=== PATIENT | male | born 1990 | race Caucasian/White ===

== ENCOUNTER 2020-09-22 14:54 | Emergency (ER) | payer MEDICAID ==
[~2020-09-22] VITALS: Ht 170.2 cm; Wt 77.1 kg
--- NOTE | 2020-09-22 15:04 | NUR ---
BIB [facility] 84 FOR SUICIDAL IDEATION. HE IS AWAKE AND ALERT. VITAL SIGNS STABLE. HE HAS NOT ATTEMPTED SUICIDE AND STATES HAS NO PLAN. STATES HE DRINKS ALCOHOL AND DRANK A COUPLE OF HOURS AGO. HE IS HOMELESS. HE IS WEARING CLEAN SHIRT AND SHORTS AND CLEAN SOCKS AND SHOES. I GAVE HIM A SANDWICH, JUICE AND WATER. STATES HE HAS BEEN HOMELESS FOR A YEAR. [facility] STATES HE CALLED EMS FOR SAME REASON YESTERDAY AND WAS DISCHARGED HOME. HE HAS A SMALL ANTONIO BAG THAT I LOOKED THROUGH.. THERE IS A PAIR OF SHORTS, SOCKS AND AN EMPTY CAN OF BEER WHICH I THREW AWAY. 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
--- NOTE | 2020-09-22 15:22 | NUR ---
[employer] WAS AT BEDSIDE. POLICE STATED "CALL CAME IN A POSSIBLE OVERDOSE". PATIENT DENIES TAKING ANY DRUGS. STATES HE DRANK ALCOHOL ONLY.
[2020-09-22 16:13] LABS: BASOPHILS # (AUTO) 0.1 K/uL (0.0-8.0); BASOPHILS % (AUTO) 0.8 % (0.0-2.0); EOSINOPHILS # (AUTO) 0.1 K/uL (0.0-0.7); EOSINOPHILS % (AUTO) 0.9 % (0.0-7.0); HEMOGLOBIN 14.9 g/dL (12.5-16.3); LYMPHOCYTES # (AUTO) 1.8 K/uL (20.0-40.0); LYMPHOCYTES % (AUTO) 23.7 % (20.5-51.5); MEAN CORPUSCULAR HEMOGLOBIN 30.4 uug (23.8-33.4); MEAN CORPUSCULAR HGB CONC 34 g/dL (32.5-36.3); MEAN CORPUSCULAR VOLUME 89.3 fL (73.0-96.2); MONOCYTES # (AUTO) 0.3 K/uL (2.0-10.0); MONOCYTES % (AUTO) 4.4 % (0.0-11.0); NEUTROPHILS # (AUTO) 5.3 K/uL (1.8-8.9); NEUTROPHILS % (AUTO) 70.2 % (38.5-71.5); PLATELET COUNT (AUTO) 342 K/uL (152-348); RED BLOOD CELL COUNT(AUTO) 4.92 MIL/uL (4.06-5.63); WHITE BLOOD COUNT (AUTO) 7.5 K/uL (3.6-10.2)
[2020-09-22 16:14] LABS: CARBON DIOXIDE 24 mmol/L (21-32); CHLORIDE 103 mmol/L (98-107); CREATININE 0.7 mg/dL (0.6-1.3); GLUCOSE 133 mg/dL (74-106); POTASSIUM 3.4 mmol/L (3.5-5.1); UREA NITROGEN, BLOOD 13 mg/dL (7-18)
[2020-09-22 16:15] LABS: *BILIRUBIN,URIN NEGATIVE (NEGATIVE); *BLOOD, URINE NEGATIVE (NEGATIVE); *CLARITY,URINE CLEAR (CLEAR); *COLOR,URINE YELLOW (YELLOW); *KETONES,URINE NEGATIVE (NEGATIVE); *UROBILINOGEN,URINE 0.2 E.U./dl (NORMAL); LEUKOCYTE ESTERASE ,URINE NEGATIVE (NEGATIVE); NITRITE, URINE NEGATIVE (NEGATIVE); PH,URINE 5.5 (5.0-8.0); UGLUCOSE NEGATIVE (NEGATIVE)
[2020-09-22 16:19] LABS: *AMPHETAMINE, URINE NEGATIVE (NEGATIVE); *CANNABINOID, URINE NEGATIVE (NEGATIVE); *COCCAINE, URINE NEGATIVE (NEGATIVE); *OPIATE, URINE NEGATIVE (NEGATIVE); *PHENCYCLIDINE SCREEN,URINE NEGATIVE (NEGATIVE)
[2020-09-22 16:20] LABS: ACETAMINOPHEN < 2.0 ug/mL (10-30); ALANINE AMINOTRANSFERASE 133 U/L (16-63); ALKALINE PHOSPHATASE 108 U/L (50-136); ASPARTATE AMINOTRANSFERASE 100 U/L (15-37); BILIRUBIN,DIRECT 0.1 mg/dL (0.0-0.2); BILIRUBIN,TOTAL 0.2 mg/dL (0.2-1.0); TOTAL PROTEIN, SERUM 7.6 g/dL (6.4-8.2)
[2020-09-22 16:22] LABS: ETHANOL 185 MG/DL (0-0)
--- NOTE | 2020-09-22 16:28 | NUR ---
WHEN I ASKED IF HE WISHES TO BE HE STATED "NO". I ALSO ASKED HIM IF HE WISHES TO HURT HIMSELF IN ANY WAY AND HE STATED "NO".
--- NOTE | 2020-09-22 16:55 | NUR ---
PATIENT IS SLEEPING, I WOKE HIM UP TO DISCHARGE HIM AND HE SAID HE "NEEDS TO SLEEP A LITTLE MORE". I TOLD HIM OK AND LET HIM SLEEP. VITAL SIGNS STABLE
--- NOTE | 2020-09-22 18:20 | NUR ---
PATIENT STATES HE HAS A PLACE TO LIVE AND DOES NOT WANT ANY ASSISTANCE WITH HOUSING. I DID GIVE HIM SNACKS AND SOCKS. HE AMBULATES WITH STEADY GAIT. HE REFUSED TO SIGN ALL DISCHARGE/HOMELESS PAPERS
== END 2020-09-22 18:26 | disposition home or self-care (01) ==
LOC: ER 14:54
DX: F10.229 Alcohol dependence with intoxication, unspecified (principal); Y90.6 Blood alcohol level of 120-199 mg/100 ml; R45.851 Suicidal ideations; Z59.0 Homelessness
CPT/HCPCS: 36415; 85025; A4663; G0480